=== PATIENT | female | born 1940 | race Caucasian/White ===

== ENCOUNTER 2016-12-12 15:51 | Inpatient (IN) | payer MEDICARE, MEDICAID ==
[~2016-12-12] VITALS: Ht 160 cm; Wt 74.0 kg
[~2016-12-12 15:51] MED LIST: CALC-179 PO; CELE200 PO; DETR4CAP PO; DEXI60CA3 PO; ENAL10TA7 PO; PERCOCET; VIVE0.03 TD
[2016-12-12] MEDS ORDERED: SODIUM CHLORIDE 0.9% FLUSH 10 ML FLUSH IVF PRN (16:45)
[2016-12-12 16:56] VITALS: BP 180/83; PULSE 92; PULSE 94; RESP 18; TEMP 97.5; TEMP 97.6; O2SAT 97
--- NOTE | 2016-12-12 17:29 | RADRPT ---
EXAM DATE/TIME: 12/12/2016 17:12 [facility] COMPARISON: No previous studies available for comparison. INDICATIONS : Fall. Low back pain. MEDICAL HISTORY : None. SURGICAL HISTORY : None. ENCOUNTER: Initial ACUITY: 1 day PAIN SCORE: 7/10 LOCATION: Lumbar FINDINGS: A single frontal view of the pelvis demonstrates no evidence of fracture. The bony pelvic ring is in tact. Bony mineralization is normal. The soft tissues are intact. CONCLUSION: No acute disease. Parrish Celeste MD on December 12, 2016 at 17:27 Board Certified Radiologist. This report was verified electronically.
--- NOTE | 2016-12-12 17:29 | RADRPT ---
EXAM DATE/TIME: 12/12/2016 17:18 [facility] COMPARISON: No previous studies available for comparison. INDICATIONS : Fall. Low back pain. MEDICAL HISTORY : None. SURGICAL HISTORY : None. ENCOUNTER: Initial ACUITY: 1 day PAIN SCORE: 7/10 LOCATION: Lumbar FINDINGS: A single view of the chest demonstrates the lungs to be symmetrically aerated without evidence of mas s, infiltrate or effusion. The cardiomediastinal contours are unremarkable. Osseous structures are intact. CONCLUSION: No acute disease. Parrish Celeste MD on December 12, 2016 at 17:27 Board Certified Radiologist. This report was verified electronically.
[2016-12-12 17:45] LABS: BACTERIA, URINE MANY /hpf; BLOOD, URINE TRACE (NEG); GLUCOSE,URINE 150 mg/dL (NEG); KETONE, URINE TRACE mg/dL (NEG); NITRITE,URINE NEG (NEG); URINE COLOR YELLOW (YELLW/STRAW)
[2016-12-12 17:46] LABS: COMMENT (UR) CULTURE INDICATED; CULTURE IF INDICATED CULTURE INDICATED
--- NOTE | 2016-12-12 17:54 | PD ---
HPI Chief Complaint: General Weakness Time Seen by Provider: 16:28 Travel History International Travel<30 days: No Contact w/Intl Traveler<30days: No Traveled to known affect area: No History of Present Illness HPI 76-year-old female experienced a mechanical fall today. She was unable to get up afterwards due to weakness. She laid on the ground for several hours. In the ER her main complaint is hunger. She denies head injury. The patient reports a history of self-catheterization due to back surgery many years ago. She also had a fall yesterday. She has no pain in her hips or about the knees. No nausea or vomiting. The patient has no additional complaints. 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) Respiratory: No ?: Not Past Surgical History Abdominal Surgery: Yes (cholecystectomy,abd surgery for hx of ingrown hair) Genitourinary Surgery: Yes (hemorroidectomy,rectocele and bladder surgery,2nd rectocele,3rd rectocele) Pacemaker: No Other Surgery: Yes Social History Alcohol Use: No Tobacco Use: No Substance Use: No Allergies-Medications (Allergen,Severity, Reaction): Coded Allergies: Egg Allergy (Unverified Allergy, Severe, n/v, 06/26/12) Reported Meds & Prescriptions Reported Meds & Active Scripts Active Reported Vasotec (Enalapril Maleate) 10 Mg Tab 10 Mg PO DAILY Dexilant (Dexlansoprazole) 60 Mg Cap 60 Mg PO DAILY Tramadol (Tramadol HCl) 50 Mg Tab 50 Mg PO BID PRN Prednisone 20 Mg Tab 60 Mg PO DAILY Famotidine 20 Mg Tab 20 Mg PO BID Detrol LA (Tolterodine Tartrate) 4 Mg Cap 4 Mg PO DAILY Eucerin (Skin Protectants, Misc.) 1 Cre Cre 1 Applic TOPICAL BID Mix with Triamcinolone Crm 0.1% and apply thin layer to affected area(s) Triamcinolone Topical (Triamcinolone Acetonide) 0.1% Cream 1 Applic TOPICAL BID Mix with Eucerin Cream and apply thin layer to affected area(s) Metrogel Topical (Metronidazole Topical) 1 % Gel 1 Applic TOPICAL DAILY Celebrex (Celecoxib) 100 Mg Cap 100 Mg PO BID Review of Systems Except as stated in HPI: all other systems reviewed are Neg General / Constitutional: No: Fever Physical Exam Narrative GENERAL: 76-year-old female pleasant no acute distress SKIN: Focused skin assessment warm/dry. Excoriated skin about the groin. HEAD: Atraumatic. Normocephalic. EYES: Pupils equal and round. No scleral icterus. No injection or drainage. ENT: No nasal bleeding or discharge. Mucous membranes pink and moist. NECK: Trachea midline. No JVD. CARDIOVASCULAR: Regular rate and rhythm. No murmur appreciated. RESPIRATORY: No accessory muscle use. Clear to auscultation. Breath sounds equal bilaterally. GASTROINTESTINAL: Abdomen soft, non-tender, nondistended. Hepatic and splenic margins not palpable. MUSCULOSKELETAL: No obvious deformities. No clubbing. No cyanosis. No edema. No tenderness about the pelvis or instability overlying the pelvis. No tenderness overlying the region of the trochanters on either side. NEUROLOGICAL: Awake and alert. No obvious cranial nerve deficits. Motor grossly within normal limits. Normal speech. PSYCHIATRIC: Appropriate mood and affect; insight and judgment normal. Data Data Last Documented VS Vital Signs Date Time Temp Pulse Resp B/P Pulse Ox O2 Delivery O2 Flow Rate FiO2 12/12/16 18:50 97.9 105 18 183/84 97 Room Air Vital signs reviewed Orders Basic Metabolic Panel (Bmp) (12/12/16 16:34) Ckmb (Isoenzyme) Profile (12/12/16 16:34) Complete Blood Count With Diff (12/12/16 16:34) Magnesium (Mg) (12/12/16 16:34) Troponin I (12/12/16 16:34) Chest, Single Ap (12/12/16 16:34) Ecg Monitoring (12/12/16 16:34) Iv Access Insert/Monitor (12/12/16 16:34) Oximetry (12/12/16 16:34) Oxygen Administration (12/12/16 16:34) Sodium Chloride 0.9% Flush (Ns Flush) (12/12/16 16:45) Urinalysis - C+S If Indicated (12/12/16 16:34) Urinary Catheter Insert/Apply (12/12/16 16:34) Pelvis, Ap Only (Routine) (12/12/16 16:34) Urine Culture (12/12/16 17:00) CKMB (12/12/16 17:45) CKMB% (12/12/16 17:45) Sodium Chlor 0.9% 1000 Ml Inj (Ns 1000 M (12/12/16 19:15) Ceftriaxone Inj (Rocephin Inj) (12/12/16 19:15) Labs Laboratory Tests Test 12/12/16 12/12/16 17:00 17:45 Urine Color YELLOW Urine Turbidity HAZY Urine pH 5.0 Urine Specific [place] 1.021 Urine Protein TRACE mg/dL Urine Glucose (UA) 150 mg/dL Urine Ketones TRACE mg/dL Urine Occult Blood TRACE Urine Nitrite NEG Urine Bilirubin NEG Urine Urobilinogen LESS THAN 2.0 MG/DL Urine Leukocyte Esterase MOD Urine WBC 3 /hpf Urine Bacteria MANY /hpf Microscopic Urinalysis Comment CULTURE INDICATED White Blood Count 10.9 TH/MM3 Red Blood Count 5.34 MIL/MM3 Hemoglobin 14.6 GM/DL Hematocrit 45.0 % Mean Corpuscular Volume 84.3 FL Mean Corpuscular Hemoglobin 27.4 PG Mean Corpuscular Hemoglobin 32.5 % Concent Red Cell Distribution Width 14.9 % Platelet Count 261 TH/MM3 Mean Platelet Volume 7.6 FL Neutrophils (%) (Auto) 83.8 % Lymphocytes (%) (Auto) 8.4 % Monocytes (%) (Auto) 7.6 % Eosinophils (%) (Auto) 0.1 % Basophils (%) (Auto) 0.1 % Neutrophils # (Auto) 9.2 TH/MM3 Lymphocytes # (Auto) 0.9 TH/MM3 Monocytes # (Auto) 0.8 TH/MM3 Eosinophils # (Auto) 0.0 TH/MM3 Basophils # (Auto) 0.0 TH/MM3 CBC Comment DIFF FINAL Differential Comment Sodium Level 145 MEQ/L Potassium Level 3.3 MEQ/L Chloride Level 110 MEQ/L Carbon Dioxide Level 25.2 MEQ/L Anion Gap 10 MEQ/L Blood Urea Nitrogen 53 MG/DL Creatinine 0.94 MG/DL Estimat Glomerular Filtration 58 ML/MIN Rate Random Glucose 99 MG/DL Calcium Level 8.8 MG/DL Magnesium Level 2.2 MG/DL Total Creatine Kinase 123 U/L Creatine Kinase MB 5.1 NG/ML Troponin I 0.05 NG/ML MDM Medical Decision Making Medical Screen Exam Complete: Yes Emergency Medical Condition: Yes Medical Record Reviewed: Yes Differential Diagnosis Rhabdo, renal insufficiency, electrolyte imbalance, UTI, anemia, infection Narrative Course CBC & BMP Diagram 12/12/16 17:45 Tn 0.5 UA: possible cystitis NS bolus 1L started. K replenished. Rocephin 1g. d/w Dr Whittaker. Diagnosis Primary Impression: Prerenal azotemia Additional Impressions: Hypokalemia Fall Qualified Code: W19.XXXA - Fall, initial encounter Admitting Information Admitting Physician Requests: Observation Mckay Rivera MD Dec 12, 2016 17:54
[2016-12-12 18:19] VITALS: BP 185/99; PULSE 108; RESP 18; O2SAT 97
[2016-12-12 18:26] LABS: AUTOMATED NEUTROPHIL # 9.2 TH/MM3 (1.8-7.7); BASOPHIL % 0.1 % (0.0-2.0); EOSINOPHIL % 0.1 % (0.0-4.0); HEMO FLAGS DIFF FINAL; LYMPH % 8.4 % (9.0-44.0); LYMPHOCYTE # 0.9 TH/MM3 (1.0-4.8); MEAN CELL VOLUME 84.3 FL (80.0-100.0); MEAN CORPUSCULAR HEMOGLOBIN 27.4 PG (27.0-34.0); MEAN CORPUSCULAR HGB CONC 32.5 % (32.0-36.0); MONO % 7.6 % (0.0-8.0); NEUT % 83.8 % (16.0-70.0); PLATELET COUNT 261 TH/MM3 (150-450); RED BLOOD COUNT 5.34 MIL/MM3 (4.00-5.30); RED CELL DISTRIBUTION WIDTH 14.9 % (11.6-17.2); WHITE BLOOD COUNT 10.9 TH/MM3 (4.0-11.0)
[2016-12-12] MEDS ORDERED: VASO10TA8 PO (18:28)
[2016-12-12] MEDS ORDERED: DETR4CAP PO (18:28)
[2016-12-12] MEDS ORDERED: TRAM50TA PO (18:28)
[2016-12-12] MEDS ORDERED: TRIA.1%T TOPICAL (18:28)
[2016-12-12] MEDS ORDERED: FAMO20TA2 PO (18:28)
[2016-12-12] MEDS ORDERED: PRED20 PO (18:28)
[2016-12-12] MEDS ORDERED: SKIN1CRE2 TOPICAL (18:28)
[2016-12-12] MEDS ORDERED: DEXI60CA PO (18:28)
[2016-12-12] MEDS ORDERED: METR1GEL TOPICAL (18:28)
[2016-12-12] MEDS ORDERED: CELE100C PO (18:28)
[2016-12-12 18:45] LABS: ANION GAP 10 MEQ/L (5-15); BICARBONATE 25.2 MEQ/L (21.0-32.0); BLOOD UREA NITROGEN 53 MG/DL (7-18); CHLORIDE 110 MEQ/L (98-107); GLOMERULAR FILTRATION RATE 58 ML/MIN (>89); MAGNESIUM 2.2 MG/DL (1.5-2.5); POTASSIUM 3.3 MEQ/L (3.5-5.1); SODIUM (NA) 145 MEQ/L (136-145)
[2016-12-12 18:49] LABS: CREATINE KINASE 123 U/L (26-192)
[2016-12-12 18:50] VITALS: BP 183/84; PULSE 105; RESP 18; TEMP 97.9; O2SAT 97
[2016-12-12 19:01] LABS: CKMB 5.1 NG/ML (0.5-3.6)
[2016-12-12] MEDS ORDERED: SODIUM CHLOR 0.9% 1000 ML INJ 1,000 ML IV ONE (19:15)
[2016-12-12] MEDS ORDERED: cefTRIAXone INJ 1,000 MG in SODIUM CHLORIDE 0.9% INJ 100 ML IV ONE (19:15)
[2016-12-12] MEDS: SODIUM CHLORIDE 0.9% FLUSH 10 ML FLUSH IV FLUSH SCH (21:00)
[2016-12-12] MEDS ORDERED: ACETAMINOPHEN 325 MG TAB PO PRN (21:00)
[2016-12-12] MEDS ORDERED: traMADol HCL 50 MG TAB PO PRN (21:00)
[2016-12-12] MEDS ORDERED: NALOXONE HCL 0.4 MG/ML AMP IV PRN (21:00)
[2016-12-12] MEDS: CELECOXIB 100 MG CAP PO SCH (21:56)
[2016-12-12] MEDS: FAMOTIDINE 20 MG TAB PO SCH (21:57)
[2016-12-12 22:00] VITALS: BP 141/68
[2016-12-12 22:30] VITALS: BP 150/75; PULSE 99; RESP 18; TEMP 97.7; O2SAT 97
[2016-12-12] MEDS: TRIAMCINOLONE ACETONIDE 0.1% CREAM 15 GM TOPICAL SCH (23:01)
[2016-12-12] MEDS: EUCERIN CREAM 120 GM JAR TOPICAL SCH (23:01)
[2016-12-13] VITALS (7 sets, daily range): BP systolic 114–159; BP diastolic 64–79; PULSE 86–97; RESP 16–20; TEMP 97.5–98.4; O2SAT 96–98
[2016-12-13] MEDS: PANTOPRAZOLE SOD 40 MG DELAYED RELEASE TAB PO SCH (05:25)
[2016-12-13 08:44] LABS: AUTOMATED NEUTROPHIL # 5.7 TH/MM3 (1.8-7.7); BASOPHIL % 0.1 % (0.0-2.0); EOSINOPHIL % 0.4 % (0.0-4.0); HEMATOCRIT 39.1 % (35.0-46.0); HEMO FLAGS DIFF FINAL; LYMPH % 16.4 % (9.0-44.0); LYMPHOCYTE # 1.2 TH/MM3 (1.0-4.8); MEAN CELL VOLUME 84.8 FL (80.0-100.0); MEAN CORPUSCULAR HEMOGLOBIN 27.6 PG (27.0-34.0); MEAN CORPUSCULAR HGB CONC 32.5 % (32.0-36.0); MONO % 6.8 % (0.0-8.0); NEUT % 76.3 % (16.0-70.0); PLATELET COUNT 210 TH/MM3 (150-450); RED BLOOD COUNT 4.61 MIL/MM3 (4.00-5.30); RED CELL DISTRIBUTION WIDTH 15.1 % (11.6-17.2); WHITE BLOOD COUNT 7.4 TH/MM3 (4.0-11.0)
[2016-12-13] MEDS ORDERED: METRONIDAZOLE 1% TOPICAL SCH (09:00)
[2016-12-13 09:08] LABS: ALKALINE PHOSPHATASE 50 U/L (45-117); ALT (GPT) 29 U/L (10-53); ANION GAP 9 MEQ/L (5-15); AST (GOT) 16 U/L (15-37); BICARBONATE 25.5 MEQ/L (21.0-32.0); BLOOD UREA NITROGEN 39 MG/DL (7-18); CHLORIDE 108 MEQ/L (98-107); GLOMERULAR FILTRATION RATE 73 ML/MIN (>89); POTASSIUM 3.5 MEQ/L (3.5-5.1); SODIUM (NA) 142 MEQ/L (136-145); TOTAL BILIRUBIN ADULT 0.5 MG/DL (0.2-1.0)
[2016-12-13] MEDS: CELECOXIB 100 MG CAP PO SCH ×2 (09:25→22:50)
[2016-12-13] MEDS: predniSONE 20 MG TAB PO SCH (09:25)
[2016-12-13] MEDS: TOLTERODINE TARTRATE 4 MG CAP LA PO SCH ×2 (09:26→22:50)
[2016-12-13] MEDS: FAMOTIDINE 20 MG TAB PO SCH ×2 (09:26→22:50)
[2016-12-13] MEDS: TRIAMCINOLONE ACETONIDE 0.1% CREAM 15 GM TOPICAL SCH ×2 (09:26→23:01)
[2016-12-13] MEDS: EUCERIN CREAM 120 GM JAR TOPICAL SCH ×2 (09:26→23:02)
[2016-12-13] MEDS: ENALAPRIL MALEATE 10 MG TAB PO SCH (09:26)
[2016-12-13] MEDS: SODIUM CHLOR 0.9% 1000 ML INJ 1,000 ML IV SCH ×2 (09:27→22:53)
[2016-12-13] MEDS: SODIUM CHLORIDE 0.9% FLUSH 10 ML FLUSH IV FLUSH SCH ×2 (09:27→22:51)
--- NOTE | 2016-12-13 13:16 | HHI.HP ---
History of Present Illness Service Family medicine Primary Care Physician Simón Whittaker, DO Admission Diagnosis Fall, Prerenal Azotemia, Tn 0.05 Diagnoses: (1) Fall (2) Prerenal azotemia (3) Hypokalemia History of Present Illness 76-year-old female experienced a mechanical fall. She also had a fall the previous day. She was unable to get up afterwards due to weakness. She laid on the ground for several hours. InShe denies head injury. The patient reports a history of self-catheterization due to back surgery many years ago. She has no pain in her hips or about the knees. No nausea or vomiting. The patient has no additional complaints. Review of Systems Constitutional: DENIES: Chills, Dizziness Respiratory: DENIES: Cough, Wheezing, Hemoptysis, Sputum production, Shortness of breath Cardiovascular: DENIES: Chest pain, Palpitations, Syncope Gastrointestinal: DENIES: Abdominal pain, Black stools, Bloody stools, Constipation, Diarrhea, Nausea, Vomiting Genitourinary: DENIES: Urgency, Hematuria Neurologic: COMPLAINS OF: Localized weakness, Poor Balance Psychiatric: DENIES: Anxiety, Mood changes, Depression Past Family Social History Allergies: Coded Allergies: Egg Allergy (Unverified Allergy, Severe, n/v, 06/26/12) Past Medical History Arthritis: Yes GERD: Yes Genitourinary: Yes (pt does self caths several times per day) Hypertension: Yes Back pain: yes Past Surgical History Cholecystectomy Hemorroidectomy,rectocele and bladder surgery Back surgery in 1984 Reported Medications Reported Meds & Active Scripts Active Reported Vasotec (Enalapril Maleate) 10 Mg Tab 10 Mg PO DAILY Dexilant (Dexlansoprazole) 60 Mg Cap 60 Mg PO DAILY Tramadol (Tramadol HCl) 50 Mg Tab 50 Mg PO BID PRN Prednisone 20 Mg Tab 60 Mg PO DAILY Famotidine 20 Mg Tab 20 Mg PO BID Detrol LA (Tolterodine Tartrate) 4 Mg Cap 4 Mg PO DAILY Eucerin (Skin Protectants, Misc.) 1 Cre Cre 1 Applic TOPICAL BID Mix with Triamcinolone Crm 0.1% and apply thin layer to affected area(s) Triamcinolone Topical (Triamcinolone Acetonide) 0.1% Cream 1 Applic TOPICAL BID Mix with Eucerin Cream and apply thin layer to affected area(s) Metrogel Topical (Metronidazole Topical) 1 % Gel 1 Applic TOPICAL DAILY Celebrex (Celecoxib) 100 Mg Cap 100 Mg PO BID Active Ordered Medications Current Medications Medications (Trade) Dose Ordered Sig/Hardeep Route Start Time Stop Time Status Last Admin (NS Flush) 2 ml UNSCH PRN IVF 12/12/16 16:45 (NS Flush) 2 ml BID IV FLUSH 12/12/16 21:00 12/13/16 09:27 (Tylenol) 650 mg Q4H PRN PO 12/12/16 21:00 (Narcan Inj) 0.4 mg UNSCH PRN IV 12/12/16 21:00 (CeleBREX) 100 mg BID PO 12/12/16 21:00 12/13/16 09:25 (Vasotec) 10 mg DAILY PO 12/13/16 09:00 12/13/16 09:26 (Pepcid) 20 mg BID PO 12/12/16 21:00 12/13/16 09:26 (Deltasone) 60 mg DAILY PO 12/13/16 09:00 12/13/16 09:25 (Eucerin Cream) 1 applic BID TOPICAL 12/12/16 21:00 12/13/16 09:26 (Detrol La) 4 mg DAILY PO 12/13/16 09:00 12/13/16 09:26 (Ultram) 50 mg BID PRN PO 12/12/16 21:00 (Aristocort 0.1% Cream) 1 applic BID TOPICAL 12/12/16 21:00 12/13/16 09:26 (Protonix) 40 mg DAILY@06 PO 12/13/16 06:00 12/13/16 05:25 Patient Own Medication PT OWN MED: Metronidazole 1% TOPI... DAILY TOPICAL 12/13/16 09:00 Hold (NS 1000 ml Inj) 1,000 ml @ 84 mls/hr [id number] IV 12/13/16 07:45 12/13/16 09:27 Family History Mother from Breast cancer Father from heart disease Social History Denies smoking, ETOH use Lives alone Physical Exam Vital Signs Vital Signs Date Time Temp Pulse Resp B/P Pulse Ox O2 Delivery O2 Flow Rate FiO2 12/13/16 08:00 98.0 88 18 156/78 97 12/13/16 04:00 97.8 87 16 154/79 96 12/13/16 00:00 98.4 93 18 159/77 96 12/12/16 22:30 97.7 99 18 150/75 97 12/12/16 22:00 98 18 141/68 98 12/12/16 18:50 97.9 105 18 183/84 97 Room Air 12/12/16 18:19 108 18 185/99 97 Room Air 12/12/16 16:56 97.5 94 18 180/83 97 Room Air 12/12/16 16:56 93 18 98 Room Air 12/12/16 16:56 97 Room Air 12/12/16 16:56 97.6 92 18 180/83 97 Room Air Physical Exam GENERAL: This is a well-nourished, well-developed patient, in no apparent distress. SKIN: No rashes, ecchymoses or lesions. Cool and dry. NECK: Trachea midline. No JVD or lymphadenopathy. Supple and nontender. CARDIOVASCULAR: Regular rate and rhythm without murmurs, gallops, or rubs. RESPIRATORY: Clear to auscultation. Breath sounds equal bilaterally. No wheezes , rales, or rhonchi. GASTROINTESTINAL: Abdomen soft, non-tender, nondistended. No guarding. MUSCULOSKELETAL: Extremities without clubbing, cyanosis, or edema. No joint tenderness, effusion, or edema noted. No calf tenderness. Negative Homans sign bilaterally. NEUROLOGICAL: Awake and alert. Normal speech. Laboratory Laboratory Tests Test 12/12/16 12/12/16 12/13/16 17:00 17:45 08:08 Urine Color YELLOW Urine Turbidity HAZY Urine pH 5.0 Urine Specific [place] 1.021 Urine Protein TRACE Urine Glucose (UA) 150 Urine Ketones TRACE Urine Occult Blood TRACE Urine Nitrite NEG Urine Bilirubin NEG Urine Urobilinogen LESS THAN 2.0 Urine Leukocyte Esterase MOD Urine WBC 3 Urine Bacteria MANY Microscopic Urinalysis Comment CULTURE INDICATED Sodium Level 145 142 Potassium Level 3.3 3.5 Chloride Level 110 108 Carbon Dioxide Level 25.2 25.5 Anion Gap 10 9 Blood Urea Nitrogen 53 39 Creatinine 0.94 0.77 Estimat Glomerular Filtration 58 73 Rate Random Glucose 99 87 Calcium Level 8.8 7.9 Magnesium Level 2.2 Total Creatine Kinase 123 Creatine Kinase MB 5.1 Troponin I 0.05 White Blood Count 10.9 7.4 Red Blood Count 5.34 4.61 Hemoglobin 14.6 12.7 Hematocrit 45.0 39.1 Mean Corpuscular Volume 84.3 84.8 Mean Corpuscular Hemoglobin 27.4 27.6 Mean Corpuscular Hemoglobin 32.5 32.5 Concent Red Cell Distribution Width 14.9 15.1 Platelet Count 261 210 Mean Platelet Volume 7.6 7.5 Neutrophils (%) (Auto) 83.8 76.3 Lymphocytes (%) (Auto) 8.4 16.4 Monocytes (%) (Auto) 7.6 6.8 Eosinophils (%) (Auto) 0.1 0.4 Basophils (%) (Auto) 0.1 0.1 Neutrophils # (Auto) 9.2 5.7 Lymphocytes # (Auto) 0.9 1.2 Monocytes # (Auto) 0.8 0.5 Eosinophils # (Auto) 0.0 0.0 Basophils # (Auto) 0.0 0.0 CBC Comment DIFF FINAL DIFF FINAL Differential Comment Total Bilirubin 0.5 Aspartate Amino Transf 16 (AST/SGOT) Alanine Aminotransferase 29 (ALT/SGPT) Alkaline Phosphatase 50 Total Protein 5.3 Albumin 2.5 Date/Time Procedure Status Source Growth 12/12/16 17:00 Urine Culture - Preliminary Resulted Urine Clean Catch Gram Negative Rodney Result Diagram: 12/13/16 0808 12/13/16 0808 Imaging Current Medications Medications (Trade) Dose Ordered Sig/Hardeep Route Start Time Stop Time Status Last Admin (NS Flush) 2 ml UNSCH PRN IVF 12/12/16 16:45 (NS Flush) 2 ml BID IV FLUSH 12/12/16 21:00 12/13/16 09:27 (Tylenol) 650 mg Q4H PRN PO 12/12/16 21:00 (Narcan Inj) 0.4 mg UNSCH PRN IV 12/12/16 21:00 (CeleBREX) 100 mg BID PO 12/12/16 21:00 12/13/16 09:25 (Vasotec) 10 mg DAILY PO 12/13/16 09:00 12/13/16 09:26 (Pepcid) 20 mg BID PO 12/12/16 21:00 12/13/16 09:26 (Deltasone) 60 mg DAILY PO 12/13/16 09:00 12/13/16 09:25 (Eucerin Cream) 1 applic BID TOPICAL 12/12/16 21:00 12/13/16 09:26 (Detrol La) 4 mg DAILY PO 12/13/16 09:00 12/13/16 09:26 (Ultram) 50 mg BID PRN PO 12/12/16 21:00 (Aristocort 0.1% Cream) 1 applic BID TOPICAL 12/12/16 21:00 12/13/16 09:26 (Protonix) 40 mg DAILY@06 PO 12/13/16 06:00 12/13/16 05:25 Patient Own Medication PT OWN MED: Metronidazole 1% TOPI... DAILY TOPICAL 12/13/16 09:00 Hold (NS 1000 ml Inj) 1,000 ml @ 84 mls/hr [id number] IV 12/13/16 07:45 12/13/16 09:27 Assessment and Plan Problem List: (1) Fall Status: Acute Plan: Patient with 2 falls. No injury noted. Pelvis xray WNL. Will order PT (2) Osteoarthritis Status: Acute Plan: Continue celebrex and PRN pain medication. (3) Hypertension Status: Acute Plan: Blood pressure elevated with SBP 150-180 will add Norvasc (4) UTI (urinary tract infection) due to urinary indwelling catheter Status: Acute Plan: UA with greater than 100,00 ecoli with culture pending will continue ceftriaxone. Replace kat catheter (5) Hypokalemia Status: Acute Plan: Resolved with potassium level of 3.5. Recheck in AM (6) Prerenal azotemia Status: Acute Plan: IVF ordered. Will monitor Assessment and Plan Labs ordered for AM. IVF's Discussed Condition With Assessment and plan discussed with Dr. Whittaker Problem Qualifiers (1) Fall: Qualified Code: W19.XXXA - Fall, initial encounter Hilda Zavala Dec 13, 2016 13:16
[2016-12-13] MEDS: amLODIPine BESYLATE 5 MG TAB PO SCH (14:00)
[2016-12-13] MEDS: cefTRIAXone INJ 1,000 MG in SODIUM CHLORIDE 0.9% INJ 100 ML IV SCH (14:01)
[2016-12-13] MEDS: ENOXAPARIN SODIUM 30 MG/0.3 ML SYRINGE SQ SCH (15:27)
[2016-12-14] VITALS (7 sets, daily range): BP systolic 131–155; BP diastolic 62–72; PULSE 74–92; RESP 16–20; TEMP 97.3–97.8; O2SAT 96–97
[2016-12-14] MEDS: PANTOPRAZOLE SOD 40 MG DELAYED RELEASE TAB PO SCH (05:34)
[2016-12-14] MEDS: predniSONE 20 MG TAB PO SCH (08:51)
[2016-12-14] MEDS: SODIUM CHLOR 0.9% 1000 ML INJ 1,000 ML IV SCH (08:51)
[2016-12-14] MEDS: amLODIPine BESYLATE 5 MG TAB PO SCH (08:51)
[2016-12-14] MEDS: FAMOTIDINE 20 MG TAB PO SCH ×2 (08:51→21:00)
[2016-12-14] MEDS: ENALAPRIL MALEATE 10 MG TAB PO SCH (08:51)
[2016-12-14] MEDS: CELECOXIB 100 MG CAP PO SCH ×2 (08:51→21:00)
[2016-12-14] MEDS: TRIAMCINOLONE ACETONIDE 0.1% CREAM 15 GM TOPICAL SCH ×2 (08:52→21:00)
[2016-12-14] MEDS: EUCERIN CREAM 120 GM JAR TOPICAL SCH ×2 (08:52→21:02)
[2016-12-14] MEDS: SODIUM CHLORIDE 0.9% FLUSH 10 ML FLUSH IV FLUSH SCH ×2 (08:52→21:00)
[2016-12-14 10:05] LABS: HEMATOCRIT 36.4 % (35.0-46.0); MEAN CELL VOLUME 83.9 FL (80.0-100.0); MEAN CORPUSCULAR HEMOGLOBIN 27.4 PG (27.0-34.0); MEAN CORPUSCULAR HGB CONC 32.6 % (32.0-36.0); PLATELET COUNT 190 TH/MM3 (150-450); RED BLOOD COUNT 4.34 MIL/MM3 (4.00-5.30); RED CELL DISTRIBUTION WIDTH 14.7 % (11.6-17.2); REVIEW FLAG FINAL; WHITE BLOOD COUNT 7.1 TH/MM3 (4.0-11.0)
[2016-12-14 10:39] LABS: BICARBONATE 25.9 MEQ/L (21.0-32.0); MAGNESIUM 1.5 MG/DL (1.5-2.5)
[2016-12-14 10:50] LABS: HDL CHOLESTEROL 40.6 MG/DL (40.0-60.0)
[2016-12-14 11:01] LABS: CALCIUM-PROTEIN CORRECTED 8.3 MG/DL (8.5-10.1)
--- NOTE | 2016-12-14 11:23 | HHI.PR ---
Subjective Remarks Patient alert and cooperative. Denies any CP or SOB Objective Vital Signs Date Time Temp Pulse Resp B/P Pulse Ox O2 Delivery O2 Flow Rate FiO2 12/14/16 08:00 97.5 77 18 138/63 96 12/14/16 07:45 74 12/14/16 03:45 97.8 78 16 131/71 96 12/13/16 23:14 97.5 87 16 119/65 96 12/13/16 20:00 97 12/13/16 20:00 97.6 86 18 119/67 98 12/13/16 16:00 98.1 87 20 114/64 98 12/13/16 12:00 97.6 93 20 151/72 97 I/O 12/13/16 12/13/16 12/13/16 12/14/16 12/14/16 12/14/16 07:00 15:00 23:00 07:00 15:00 23:00 Intake Total 390 ml 840 ml 1461 ml 240 ml Output Total 100 ml 550 ml 450 ml 650 ml Balance 290 ml 290 ml 1011 ml -410 ml Intake Oral 390 ml 840 ml 360 ml 240 ml IV Total 1101 ml Output Urine Total 100 ml 550 ml 450 ml 650 ml # Bowel Movements 0 0 0 Result Diagram: 12/14/1691812/14/16918 Imaging Last 48 hours Impressions Pelvis X-Ray 12/12/164 Signed Impressions: Service Date/Time: Monday, December 12, 2016 17:12 - CONCLUSION: No acute disease. Parrish Celeste MD Chest X-Ray 12/12/16 1634 Signed Impressions: Service Date/Time: Monday, December 12, 2016 17:18 - CONCLUSION: No acute disease. Parrish Celeste MD Objective Remarks GENERAL: Alert and coopertive. Patient with kat for neurogenic bladder SKIN: Warm and dry. HEAD: Normocephalic. EYES: No scleral icterus. No injection or drainage. NECK: Supple, trachea midline. No JVD or lymphadenopathy. CARDIOVASCULAR: Regular rate and rhythm without murmurs, gallops, or rubs. RESPIRATORY: Breath sounds equal bilaterally. No accessory muscle use. GASTROINTESTINAL: Abdomen soft, non-tender, nondistended. MUSCULOSKELETAL: No cyanosis, or edema. BACK: Nontender without obvious deformity. No CVA tenderness. Medications and IVs Current Medications Medications (Trade) Dose Ordered Sig/Hardeep Route Start Time Stop Time Status Last Admin (NS Flush) 2 ml UNSCH PRN IVF 12/12/16 16:45 (NS Flush) 2 ml BID IV FLUSH 12/12/16 21:00 12/14/16 08:52 (Tylenol) 650 mg Q4H PRN PO 12/12/16 21:00 (Narcan Inj) 0.4 mg UNSCH PRN IV 12/12/16 21:00 (CeleBREX) 100 mg BID PO 12/12/16 21:00 12/14/16 08:51 (Vasotec) 10 mg DAILY PO 12/13/16 09:00 12/14/16 08:51 (Pepcid) 20 mg BID PO 12/12/16 21:00 12/14/16 08:51 (Deltasone) 60 mg DAILY PO 12/13/16 09:00 12/14/16 08:51 (Eucerin Cream) 1 applic BID TOPICAL 12/12/16 21:00 12/14/16 08:52 (Detrol La) 4 mg DAILY PO 12/13/16 09:00 12/13/16 22:50 (Ultram) 50 mg BID PRN PO 12/12/16 21:00 (Aristocort 0.1% Cream) 1 applic BID TOPICAL 12/12/16 21:00 12/14/16 08:52 (Protonix) 40 mg DAILY@06 PO 12/13/16 06:00 12/14/16 05:34 Patient Own Medication PT OWN MED: Metronidazole 1% TOPI... DAILY TOPICAL 12/13/16 09:00 Hold Sodium Chloride 1,000 ml @ 84 mls/hr [id number] IV 12/13/16 07:45 12/14/16 08:51 (Rocephin Inj/NS Inj) 100 ml @ 200 mls/hr Q24H IV 12/13/16 14:00 12/13/16 14:01 (Norvasc) 5 mg DAILY PO 12/13/16 13:00 12/14/16 08:51 (Lovenox Inj) 30 mg Q24H SQ 12/13/16 15:00 12/13/16 15:27 Assessment and Plan Problem List: (1) Fall Status: Acute Plan: Patient with 2 falls. No injury noted. Pelvis xray WNL. PT ordered (2) Osteoarthritis Status: Chronic Plan: Continue celebrex and PRN pain medication. (3) Hypertension Status: Chronic Plan: Blood pressure better controlled at 138/63 with addition of Norvasc (4) UTI (urinary tract infection) due to urinary indwelling catheter Status: Acute Plan: UA with greater than 100,00 ecoli with culture sensitive to ceftriaxone. Kat catheter ordered to be changed. (5) Hypokalemia Status: Acute Plan: K low at 3.2. Replacement added. (6) Prerenal azotemia Status: Acute Plan: Discontinue IVF will moniter (7) Weakness generalized Status: Acute Plan: Patient with two falls and history of ventriculomegaly will consult neurology (8) Abnormal blood electrolyte level Status: Acute Plan: Magnesium and phos low replacement added. Assessment and Plan Labs ordered for AM. Neurology consult Discussed Condition With Assessment and plan discussed with Dr. Whittaker Problem Qualifiers (1) Fall: Qualified Code: W19.XXXA - Fall, initial encounter Hilda Zavala Dec 14, 2016 11:23
[2016-12-14] MEDS: MAGNESIUM SULFATE 1 GM PREMIX 100 ML IV SCH ×2 (12:20→13:26)
[2016-12-14] MEDS: cefTRIAXone INJ 1,000 MG in SODIUM CHLORIDE 0.9% INJ 100 ML IV SCH (13:46)
[2016-12-14] MEDS: ENOXAPARIN SODIUM 30 MG/0.3 ML SYRINGE SQ SCH (13:46)
[2016-12-14] MEDS ORDERED: POTASSIUM PHOSPHATE INJ 30 MMOL in SODIUM CHLOR 0.9% 250 ML INJ 250 ML IV ONE (14:00)
[2016-12-15] VITALS (7 sets, daily range): BP systolic 114–134; BP diastolic 63–71; PULSE 71–91; RESP 16–20; TEMP 97.6–98.2; O2SAT 95–96
[2016-12-15] MEDS: PANTOPRAZOLE SOD 40 MG DELAYED RELEASE TAB PO SCH (05:42)
[2016-12-15 07:08] LABS: MAGNESIUM 1.7 MG/DL (1.5-2.5)
--- NOTE | 2016-12-15 07:32 | HHI.PR ---
Subjective Remarks Patient alert and cooperative. Denies any CP or SOB. Reports weakness and that her legs just give out. Objective Vital Signs Date Time Temp Pulse Resp B/P Pulse Ox O2 Delivery O2 Flow Rate FiO2 12/15/16 04:00 98.2 74 18 123/63 96 12/15/16 04:00 Room Air 12/15/16 00:00 Room Air 12/15/16 00:00 98.0 78 16 134/70 95 12/14/16 20:25 85 12/14/16 20:00 97.7 80 18 155/70 97 12/14/16 20:00 Room Air 12/14/16 16:00 97.3 92 20 136/72 97 12/14/16 12:00 97.6 90 18 133/62 97 12/14/16 08:00 97.5 77 18 138/63 96 12/14/16 07:45 74 I/O 12/14/16 12/14/16 12/14/16 12/15/16 12/15/16 12/15/16 07:00 15:00 23:00 07:00 15:00 23:00 Intake Total 240 ml 1062 ml 250 ml 360 ml Output Total 650 ml 1425 ml 1400 ml 1250 ml Balance -410 ml -363 ml -1150 ml -890 ml Intake Oral 240 ml 600 ml 360 ml IV Total 462 ml 250 ml Output Urine Total 650 ml 1425 ml 1400 ml 1250 ml # Bowel Movements 0 0 0 0 Result Diagram: 12/14/1691812/14/16918 Objective Remarks GENERAL: Alert and coopertive. Patient with kat for neurogenic bladder SKIN: Warm and dry. HEAD: Normocephalic. EYES: No scleral icterus. No injection or drainage. NECK: Supple, trachea midline. No JVD or lymphadenopathy. CARDIOVASCULAR: Regular rate and rhythm without murmurs, gallops, or rubs. RESPIRATORY: Breath sounds equal bilaterally. No accessory muscle use. GASTROINTESTINAL: Abdomen soft, non-tender, nondistended. MUSCULOSKELETAL: No cyanosis, or edema. BACK: Nontender without obvious deformity. No CVA tenderness. Medications and IVs Current Medications Medications (Trade) Dose Ordered Sig/Hardeep Route Start Time Stop Time Status Last Admin (NS Flush) 2 ml UNSCH PRN IVF 12/12/16 16:45 (NS Flush) 2 ml BID IV FLUSH 12/12/16 21:00 12/14/16 21:00 (Tylenol) 650 mg Q4H PRN PO 12/12/16 21:00 (Narcan Inj) 0.4 mg UNSCH PRN IV 12/12/16 21:00 (CeleBREX) 100 mg BID PO 12/12/16 21:00 12/14/16 21:00 (Vasotec) 10 mg DAILY PO 12/13/16 09:00 12/14/16 08:51 (Pepcid) 20 mg BID PO 12/12/16 21:00 12/14/16 21:00 (Deltasone) 60 mg DAILY PO 12/13/16 09:00 12/14/16 08:51 (Eucerin Cream) 1 applic BID TOPICAL 12/12/16 21:00 12/14/16 21:02 (Detrol La) 4 mg DAILY PO 12/13/16 09:00 12/13/16 22:50 (Ultram) 50 mg BID PRN PO 12/12/16 21:00 (Aristocort 0.1% Cream) 1 applic BID TOPICAL 12/12/16 21:00 12/14/16 08:52 (Protonix) 40 mg DAILY@06 PO 12/13/16 06:00 12/15/16 05:42 Patient Own Medication PT OWN MED: Metronidazole 1% TOPI... DAILY TOPICAL 12/13/16 09:00 Hold (Rocephin Inj/NS Inj) 100 ml @ 200 mls/hr Q24H IV 12/13/16 14:00 12/14/16 13:46 (Norvasc) 5 mg DAILY PO 12/13/16 13:00 12/14/16 08:51 (Lovenox Inj) 30 mg Q24H SQ 12/13/16 15:00 12/14/16 13:46 (KCl) 20 meq DAILY PO 12/15/16 09:00 Assessment and Plan Problem List: (1) Fall Status: Acute Plan: Patient with 2 falls. No injury noted. Pelvis xray WNL. PT ordered (2) Osteoarthritis Status: Chronic Plan: Continue celebrex and PRN pain medication. (3) Hypertension Status: Chronic Plan: Blood pressure better controlled at 138/63 with addition of Norvasc (4) UTI (urinary tract infection) due to urinary indwelling catheter Status: Acute Plan: UA with greater than 100,00 ecoli with culture sensitive to ceftriaxone. Kat catheter ordered to be changed. (5) Hypokalemia Status: Acute Plan: K low at 3.2. Replacement added. (6) Prerenal azotemia Status: Acute Plan: Discontinue IVF will moniter (7) Weakness generalized Status: Acute Plan: Patient with two falls and history of ventriculomegaly will consult neurology (8) Abnormal blood electrolyte level Status: Acute Plan: Magnesium and phos low replacement added. Assessment and Plan Labs ordered for AM. Neurology consult Problem Qualifiers (1) Fall: Qualified Code: W19.XXXA - Fall, initial encounter Hilda Zavala Dec 15, 2016 07:32
[2016-12-15] MEDS: amLODIPine BESYLATE 5 MG TAB PO SCH (07:50)
[2016-12-15] MEDS: POTASSIUM CHLORIDE 20 MEQ CONTROLLED RELEASE TAB PO SCH (07:50)
[2016-12-15] MEDS: TOLTERODINE TARTRATE 4 MG CAP LA PO SCH (07:50)
[2016-12-15] MEDS: ENALAPRIL MALEATE 10 MG TAB PO SCH (07:50)
[2016-12-15] MEDS: FAMOTIDINE 20 MG TAB PO SCH ×2 (07:50→20:47)
[2016-12-15] MEDS: CELECOXIB 100 MG CAP PO SCH ×2 (07:51→20:47)
[2016-12-15] MEDS: predniSONE 20 MG TAB PO SCH (07:51)
[2016-12-15] MEDS: EUCERIN CREAM 120 GM JAR TOPICAL SCH ×2 (07:52→20:48)
[2016-12-15] MEDS: SODIUM CHLORIDE 0.9% FLUSH 10 ML FLUSH IV FLUSH SCH ×2 (08:00→20:47)
--- NOTE | 2016-12-15 08:28 | MB ---
cc: KAREL COREA DATE OF SERVICE 12/14/2016 REASON FOR CONSULTATION Falls and dilated ventricles on CT scan. HISTORY OF PRESENT ILLNESS Ms. Lovett is a 76-year-old female with past medical history of hypertension, chronic backache, history of left sciatic nerve disease, uses a cane at baseline. She was admitted at [facility] on 11/06/2016 for left diminished vision. No double vision, headache, nausea and vomiting. She was diagnosed with left ischemic optic neuropathy and head CT scan reveals massively dilated ventricles which may be ventriculomegaly or porencephalic cyst. The patient openly states that, "My head has always been big, not like my siblings." An MRI of the orbits with and without contrast done on 11/09/2016 revealed asymmetric hyperintensity of the left posterior infraorbital, infraclavicular and intracranial optic nerve consistent with left optic neuropathy/neuritis. She comes at this time to [facility] because of a fall. The patient declined surgery when Neurosurgery saw her at the [facility]. The patient states that she has mild memory difficulty. She self-catheterizes herself since 1984.Currently weak in both legs. REVIEW OF SYSTEMS A 12-point review of systems is negative except for what is stated in the HPI. PAST MEDICAL HISTORY 1. Chronic backache. 2. GERD. 3. 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 4. Hypertension. 5. Sciatica. 6. Rosacea. PAST SURGICAL HISTORY Noncontributory. FAMILY HISTORY Noncontributory. SOCIAL HISTORY Denies alcohol, smoking or illicit drug abuse. PHYSICAL EXAMINATION GENERAL: Awake, alert, pleasant, good historian, in no acute distress. HEENT: Atraumatic, normocephalic. Intact hearing and vision. NECK: No carotid bruit. No signs of meningeal irritation. CARDIOVASCULAR: Regular rate and rhythm. No murmur. RESPIRATORY: Clear to auscultation. No wheezes. NEUROMUSCULAR/Musculoskeletal: Normal range of movement. No edema, no swelling , no deformity. NEUROLOGICAL: Awake, alert, oriented to time, person and place. No dysarthria, no dysphasia. Cranial nerve examination II-XII is grossly intact. Motor examination 5/5 bilateral and symmetrical and upper extremities with 5- bilateral hip flexion. No abnormal movement. Normal tone. Reflexes 2+ in bilateral upper extremities, 3+ in bilateral lower extremities. No clonus. Positive crossed abductor reflex. No Avila's sign. Imemaf-fd-qgbz and ppuy-gn-ekun is intact bilateral, symmetrical. Sensation is intact bilateral and symmetrical to pain and temperature. Aoaogp-xf-ixyj and jaly-tl-szpi are intact. LABORATORY DATA White blood cells 7.1, hemoglobin 11.9, platelets 190.Sodium 140, potassium of 3 , chloride 108, calcium 7.2, BUN 17, creatinine 0.54,phosphorus 1.3, magnesium 1.5, total protein 5.Triglyceride 233, cholesterol 106.TSH 0.007. DIAGNOSTIC IMPRESSION 1. 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 2. History of optic ischemia neuropathy. 3. Decline in memory. 4. Gait instability, chronic. 5. Chronic back pain. 6. Chronic urinary retention/self catheterization since 1984. PLAN 1. Neuro checks 2. PT and OT recommendations are appreciated. 3. 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 4. Please call for any questions. 5. Follow up with Neurology as an outpatient in four weeks. Thank you for the opportunity to participate in the care of your patient. Karel Corea MD RGO/SSB /1:20 AM /8:04 AM MARTHA
[2016-12-15] MEDS: TRIAMCINOLONE ACETONIDE 0.1% CREAM 15 GM TOPICAL SCH ×2 (11:46→20:48)
[2016-12-15 12:56] LABS: HEMATOCRIT 40.1 % (35.0-46.0); MEAN CELL VOLUME 83.4 FL (80.0-100.0); MEAN CORPUSCULAR HEMOGLOBIN 28.2 PG (27.0-34.0); MEAN CORPUSCULAR HGB CONC 33.8 % (32.0-36.0); PLATELET COUNT 266 TH/MM3 (150-450); RED BLOOD COUNT 4.81 MIL/MM3 (4.00-5.30); RED CELL DISTRIBUTION WIDTH 14.7 % (11.6-17.2); REVIEW FLAG FINAL; WHITE BLOOD COUNT 10.1 TH/MM3 (4.0-11.0)
[2016-12-15 13:20] LABS: BICARBONATE 23.8 MEQ/L (21.0-32.0); POTASSIUM 4.3 MEQ/L (3.5-5.1)
[2016-12-15] MEDS: cefTRIAXone INJ 1,000 MG in SODIUM CHLORIDE 0.9% INJ 100 ML IV SCH (14:54)
[2016-12-15] MEDS: ENOXAPARIN SODIUM 30 MG/0.3 ML SYRINGE SQ SCH (14:55)
[2016-12-16] VITALS: BP 130/63; PULSE 77; RESP 18; TEMP 98.2; O2SAT 97
[2016-12-16 04:00] VITALS: BP 130/65; PULSE 70; RESP 16; TEMP 98.1; O2SAT 96
[2016-12-16] MEDS: PANTOPRAZOLE SOD 40 MG DELAYED RELEASE TAB PO SCH (05:59)
[2016-12-16] MEDS ORDERED: BISACODYL 10 MG SUPP RECTAL ONE (07:15)
[2016-12-16 07:55] LABS: AUTOMATED NEUTROPHIL # 6.8 TH/MM3 (1.8-7.7); BASOPHIL % 0.1 % (0.0-2.0); EOSINOPHIL % 0.2 % (0.0-4.0); HEMATOCRIT 34.7 % (35.0-46.0); HEMO FLAGS DIFF FINAL; LYMPH % 18.6 % (9.0-44.0); LYMPHOCYTE # 1.7 TH/MM3 (1.0-4.8); MEAN CELL VOLUME 84.1 FL (80.0-100.0); MEAN CORPUSCULAR HEMOGLOBIN 27.7 PG (27.0-34.0); MONO % 4.5 % (0.0-8.0); NEUT % 76.6 % (16.0-70.0); PLATELET COUNT 193 TH/MM3 (150-450); RED BLOOD COUNT 4.13 MIL/MM3 (4.00-5.30); RED CELL DISTRIBUTION WIDTH 14.9 % (11.6-17.2); WHITE BLOOD COUNT 8.9 TH/MM3 (4.0-11.0)
[2016-12-16 08:00] VITALS: BP 125/66; PULSE 76; RESP 20; TEMP 97.6; O2SAT 96
[2016-12-16 08:13] LABS: BICARBONATE 25.5 MEQ/L (21.0-32.0); POTASSIUM 3.9 MEQ/L (3.5-5.1)
[2016-12-16 08:24] LABS: CALCIUM-PROTEIN CORRECTED 8.7 MG/DL (8.5-10.1)
[2016-12-16] MEDS: TOLTERODINE TARTRATE 4 MG CAP LA PO SCH (09:18)
[2016-12-16] MEDS: CELECOXIB 100 MG CAP PO SCH (09:18)
[2016-12-16] MEDS: POTASSIUM CHLORIDE 20 MEQ CONTROLLED RELEASE TAB PO SCH (09:19)
[2016-12-16] MEDS: FAMOTIDINE 20 MG TAB PO SCH (09:19)
[2016-12-16] MEDS: amLODIPine BESYLATE 5 MG TAB PO SCH (09:19)
[2016-12-16] MEDS: ENALAPRIL MALEATE 10 MG TAB PO SCH (09:19)
[2016-12-16] MEDS: predniSONE 20 MG TAB PO SCH (09:20)
[2016-12-16] MEDS: SODIUM CHLORIDE 0.9% FLUSH 10 ML FLUSH IV FLUSH SCH (09:49)
[2016-12-16] MEDS: EUCERIN CREAM 120 GM JAR TOPICAL SCH (09:49)
[2016-12-16] MEDS: TRIAMCINOLONE ACETONIDE 0.1% CREAM 15 GM TOPICAL SCH (09:49)
[2016-12-16] MEDS ORDERED: AMLO5 PO (10:04)
--- NOTE | 2016-12-16 10:11 | HHI.DS ---
Discharge Summary Admission Date Dec 12, 2016 at 19:14 Admitting Diagnosis Fall, Prerenal Azotemia, Tn 0.05 (1) Weakness generalized Brief History 76-year-old female experienced a mechanical fall. She also had a fall the previous day. She was unable to get up afterwards due to weakness. She laid on the ground for several hours. InShe denies head injury. The patient reports a history of self-catheterization due to back surgery many years ago. She has no pain in her hips or about the knees. No nausea or vomiting. The patient has no additional complaints. CBC/BMP: 12/16/16 0700 12/16/16 0700 Significant Findings Laboratory Tests Test 12/14/16 12/15/16 12/15/16 12/16/16 09:19 06:20 12:45 07:00 Potassium Level 3.0 MEQ/L (3.5-5.1) Chloride Level 108 MEQ/L (98-107) Calcium Level 7.2 MG/DL 7.8 MG/DL 7.3 MG/DL (8.5-10.1) (8.5-10.1) (8.5-10.1) Protein Corrected Calcium 8.3 MG/DL (8.5-10.1) Phosphorus Level 1.3 MG/DL 1.9 MG/DL (2.5-4.9) (2.5-4.9) Total Protein 5.0 GM/DL 4.7 GM/DL (6.4-8.2) (6.4-8.2) Triglycerides Level 233 MG/DL (42-150) Cholesterol Level 106 MG/DL (120-200) Thyroid Stimulating Hormone 0.007 uIU/ML 3rd Gen (0.358-3.740) Estimat Glomerular Filtration 68 ML/MIN (>89) Rate Random Glucose 133 MG/DL (74-106) Hemoglobin 11.5 GM/DL (11.6-15.3) Hematocrit 34.7 % (35.0-46.0) Neutrophils (%) (Auto) 76.6 % (16.0-70.0) Blood Urea Nitrogen 22 MG/DL (7-18) PE at Discharge GENERAL: Alert and coopertive. Patient with kat for neurogenic bladder SKIN: Warm and dry. HEAD: Normocephalic. EYES: No scleral icterus. No injection or drainage. NECK: Supple, trachea midline. No JVD or lymphadenopathy. CARDIOVASCULAR: Regular rate and rhythm without murmurs, gallops, or rubs. RESPIRATORY: Breath sounds equal bilaterally. No accessory muscle use. GASTROINTESTINAL: Abdomen soft, non-tender, nondistended. MUSCULOSKELETAL: No cyanosis, or edema. BACK: Nontender without obvious deformity. No CVA tenderness. Hospital Course 76-year-old female experienced a mechanical fall. She also had a fall the previous day. She was unable to get up afterwards due to weakness. She laid on the ground for several hours. InShe denies head injury. The patient reports a history of self-catheterization due to back surgery many years ago. She has no pain in her hips or about the knees. No nausea or vomiting. The patient has no additional complaints. Patients hospital course was uneventful however continues to feel weak. Was seen by neurology with no further recommendations. Patient is discharged to a SNF for further PT/OT for strength training. Pt Condition on Discharge: Good Discharge Disposition: Discharge to SNF Discharge Instructions DIET: Follow Instructions for: As Tolerated, No Restrictions Activities you can perform: Regular-No Restrictions New Medications: Amlodipine (Norvasc) 5 Mg Tab 5 MG PO DAILY Blood Pressure Management #30 TAB Continued Medications: Celecoxib (Celebrex) 100 Mg Cap 100 MG PO BID Pain Management Ref 0 CAP Dexlansoprazole (Dexilant) 60 Mg Cap 60 MG PO DAILY #30 Ref 0 CAP Enalapril (Vasotec) 10 Mg Tab 10 MG PO DAILY #30 Ref 0 TAB Famotidine (Famotidine) 20 Mg Tab 20 MG PO BID #60 Ref 0 TAB Metronidazole Topical (Metrogel Topical) 1 % Gel 1 APPLIC TOPICAL DAILY Infection #1 Ref 0 TUBE Prednisone (Prednisone) 20 Mg Tab 60 MG PO DAILY Ref 0 TAB Skin Protectants, Misc. (Eucerin) 1 Cre Cre 1 APPLIC TOPICAL BID Mix with Triamcinolone Crm 0.1% and apply thin layer to affected area(s) Tolterodine ER (Detrol LA) 4 Mg Cap 4 MG PO DAILY Urinary Symptom Managemen #30 Ref 0 CAP Tramadol (Tramadol) 50 Mg Tab 50 MG PO BID PRN PAIN Ref 0 TAB Triamcinolone Topical (Triamcinolone Topical) 0.1% Cream 1 APPLIC TOPICAL BID Mix with Eucerin Cream and apply thin layer to affected area(s) Inflammation Ref 0 GM Gellermann,Hilda M. RAW HIDE TRIMMER Dec 16, 2016 10:11
== END 2016-12-16 12:55 | DRG 699 ==
LOC: NEPE 15:51 → OBSVTOIN 19:14 → NEDA 19:14 → N04B 22:27
PROVIDERS: ADMIT Family Medicine; ATTEND Family Medicine
DX: T83.518A Infection and inflammatory reaction due to other urinary catheter, initial encounter (principal); N39.0 Urinary tract infection, site not specified; G93.89 Other specified disorders of brain; H46.8 Other optic neuritis; R79.89 Other specified abnormal findings of blood chemistry; I10 Essential (primary) hypertension; E87.6 Hypokalemia; W19.XXXA Unspecified fall, initial encounter; K21.9 Gastro-esophageal reflux disease without esophagitis; M19.90 Unspecified osteoarthritis, unspecified site; R53.1 Weakness; Z91.012 Allergy to eggs; M54.9 Dorsalgia, unspecified; Z80.3 Family history of malignant neoplasm of breast; Z82.49 Family history of ischemic heart disease and other diseases of the circulatory system; Y84.6 Urinary catheterization as the cause of abnormal reaction of the patient, or of later complication, without mention of misadventure at the time of the procedure; M54.30 Sciatica, unspecified side; L71.9 Rosacea, unspecified; G93.0 Cerebral cysts; R26.9 Unspecified abnormalities of gait and mobility; G89.29 Other chronic pain; B96.20 Unspecified Escherichia coli [E. coli] as the cause of diseases classified elsewhere
CPT/HCPCS: 51702; 71010; 72170; 80048; 80053; 80061; 81001; 82550; 82552; 83735; 84100; 84155; 84443; 84484; 85025; 85027; 87077; 87086; 87186; 96374; J0696; J1650; J3475; J7030; J7050; J7512